=== PATIENT | male | born 1970 | race Caucasian/White ===

== ENCOUNTER 2018-09-13 09:20 | Observation (INO) | payer OTHER ==
[~2018-09-13] VITALS: Ht 175.3 cm; Wt 88.0 kg
[2018-09-13 09:22] VITALS: BP 138/69
[2018-09-13] MEDS ORDERED: HYDROCHLOROTH12.5 M1 PO (09:26)
[2018-09-13] MEDS ORDERED: LOPRESSOR25 PO (09:26)
[2018-09-13 09:36] LABS: HEMATOCRIT 47.7 % (42.0-52.0); HEMOGLOBIN 16.1 gm/dL (14.0-18.0); MCH 29.1 pg (26.0-34.0); MCHC 33.8 g/dL (28.0-37.0); MPV 10.1 fl. (7.2-11.1); NUCLEATED RBCS 0 /100WBC; PLATELET COUNT* 190 thou/uL (150-400); RBC 5.54 mil/uL (4.50-6.00); RDW-CV 13.5 % (10.5-14.5)
[2018-09-13 09:44] LABS: ANION GAP 11 mmol/L (7-16); BUN 25 mg/dL (7-18); CALCIUM 9.3 mg/dL (8.5-10.1); CHLORIDE 103 mmol/L (98-107); CO2 25 mmol/L (21-32); CREATININE 1.4 mg/dL (0.6-1.3); GLUCOSE 118 mg/dL (70-99); POTASSIUM 4.1 mmol/L (3.5-5.1); SODIUM 139 mmol/L (136-145)
[2018-09-13 09:48] LABS: APTT 25.2 Seconds (25.0-31.3); PROTIME 10.4 Seconds (9.20-11.50)
[2018-09-13 09:52] LABS: ALBUMIN 3.9 g/dL (3.4-5.0); ALKALINE PHOSPHATASE 55 U/L (46-116); LIPASE 153 U/L (73-393); SGOT 16 U/L (15-37); SGPT 31 U/L (30-65); TOTAL BILIRUBIN 0.4 mg/dL (<0.1-1.0); TROPONIN-I LEVEL <0.06 ng/mL (<0.06)
[2018-09-13 09:59] LABS: ABSOLUTE EOSINOPHILS 0.3 thou/uL (0.0-0.7); ABSOLUTE LYMPHOCYTES 2.8 thou/uL (0.8-5.3); ABSOLUTE MONOCYTES 0.4 thou/uL (0.0-1.2); ABSOLUTE NEUTROPHILS 4.5 thou/uL (1.6-8.1); ATYPICAL LYMPHS 3 %; PLATELET ESTIMATE ADEQUATE
[2018-09-13 11:45] VITALS: BP 115/71
[2018-09-13 11:58] VITALS: BP 121/61
[2018-09-13 16:01] VITALS: BP 116/73
[2018-09-13 17:55] VITALS: BP 116/73
--- NOTE | 2018-09-14 09:44 | CON ---
[address] [address] CONSULTATION Name: LEMUEL WATKINS Amanda Room: [address] Pauline Schultz#: [id number] Admission: 09/13/18 Attend Phys: Bjorn Oneill MD Discharge: 09/13/18 Date of : 68 Report #: [id number] THIS REPORT FOR: //name// CC: Bjorn LYLES DO Physician staff TYPE OF REPORT: Cardiology consultation. INDICATION: Chest pain. HISTORY OF PRESENT ILLNESS: The patient is a very pleasant gentleman with no prior cardiac history. He presented to the hospital with midsternal chest discomfort and bilateral arm weakness this morning. The pain lasted for approximately 1 hour. The patient was given a nitroglycerin in the Emergency Room with relief of his discomfort. Cardiac risk factors include hypertension and dyslipidemia. He quit smoking 6 years ago. He has not had previous episodes like this. He has had none since. There was mild associated shortness of breath and possibly diaphoresis but no nausea or vomiting. PAST MEDICAL HISTORY: Significant for gastroesophageal reflux, hypertension, dyslipidemia, nephrolithiasis and mild chronic renal insufficiency. PAST SURGICAL HISTORY: Knee surgery x 3, lithotripsy x 2, left inguinal hernia repair as a child. ALLERGIES: STATIN AGENTS. HOME MEDICATIONS: Hydrochlorothiazide 12.5 mg daily, metoprolol tartrate 25 mg daily, omeprazole 20 mg daily and fish oil one tablet daily. FAMILY HISTORY: Noncontributory. SOCIAL HISTORY: Quit smoking 6 years ago. 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 REVIEW OF SYSTEMS: A 14-point review of systems is otherwise unremarkable. PHYSICAL EXAMINATION: VITAL SIGNS: Stable. Blood pressure is 121/61 and pulse is 57 and regular. GENERAL: This is a healthy-appearing young gentleman, in no distress. Mood and affect appropriate. HEENT: Extraocular muscles intact. Mucous membranes are moist. NECK: Shows no jugular venous distention. There are no carotid bruits. CHEST: Reveals clear lung baxter without wheezes, rales or rhonchi. CARDIOVASCULAR: Reveals a regular rhythm. Normal S1 and [place] [address] CONSULTATION Name: LEMUEL WATKINS Room: [address]#: [id number] Admission: 09/13/18 Attend Phys: Bjorn Oneill MD Discharge: 09/13/18 Date of : 68 Report #: [id number] appreciate gallop or murmur. ABDOMEN: Reveals normal bowel sounds. The abdomen is soft and nontender. EXTREMITIES: Shows no edema. Peripheral pulses are 2+ and easily palpable. SKIN: Warm and dry. RADIOLOGICAL DATA: A 12-lead EKG shows sinus rhythm with no significant ST or T-wave abnormalities. LABORATORY DATA: Labs are reviewed. Troponins are less than 0.06 on 2 separate occasions. IMPRESSION AND RECOMMENDATIONS: 1. Chest pain with some features to suggest angina. I would like stress testing to further evaluate. Further notes will be pending results of that study. 2. Hypertension. Continue current antihypertensive regimen with adjustment as needed. 3. Hyperlipidemia. The patient reports statin intolerance. <ELECTRONICALLY SIGNED> By: Trino Casanova MD, FACC 09/14/18 0944 1248 [id number] Hospital[facility]kys Casanova MD, FACC /nt
--- NOTE | 2018-09-14 09:44 | TST ---
[place] [address] TREADMILL STRESS TEST Name: LEMUEL WATKINS Room: [address]#: [id number] Admission: 09/13/18 Attend Phys: Bjorn Oneill, Discharge: 09/13/18 Date of : 68 Date of Service: 09/13/18 1748 Report #: [id number] THIS REPORT FOR: //name// CC: Bjorn Mauro DO Physician staff DATE OF SERVICE: 09/13/2018 STANDARD KIRIT PROTOCOL EXERCISE STRESS TEST: INDICATION: Chest pain. RISK FACTORS: Hyperlipidemia, hypertension, and family history of coronary artery disease. CARDIAC MEDICATIONS: Aspirin, metoprolol and hydrochlorothiazide. The patient exercised per standard Kirit protocol for a total of 10 minutes and 9 seconds. The patient achieved 85% of the maximum predicted heart rate and an energy expenditure equivalent to 12.02 METS. The resting blood pressure was 131/88 mmHg with a resting pulse rate of 63 beats per minute. At peak exercise, the blood pressure was 162/75 mmHg with a peak stress, heart rate 146 beats per minute. In recovery, the blood pressure was 130/90 mmHg with a recovery heart rate of 82 beats per minute. The patient tolerated exercise well and without significant cardiac complaint. The baseline 12-lead EKG shows sinus rhythm with no significant ST or T-wave abnormalities. EKGs obtained during and post-exercise stress shows sinus rhythm and sinus tachycardia with no significant ST or T-wave changes when compared to baseline. There were no stress-induced arrhythmias. IMPRESSION: 1. Clinical response: Nonischemic. 2. Electrocardiographic response: Nonischemic. CONCLUSIONS: This standard Kirit protocol exercise stress test shows no clinical or EKG evidence to suggest stress-induced ischemia. The patient exhibited good exercise tolerance. This is a low-risk study. <ELECTRONICALLY SIGNED> By: Trino Casanova MD, FACC 09/14/18 0944 1748 0003 Trino Casanova MD, FACC /nt
--- NOTE | 2018-09-15 15:31 | EKG ---
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
== END 2018-09-13 18:15 | disposition home or self-care (01) ==
LOC: M.ERS 09:20 → M.TBA-ER 10:54 → M.2W 10:54
PROVIDERS: Personal Emergency Response Attendant; ADMIT Internal Medicine
DX: R07.89 Other chest pain (principal); E78.5 Hyperlipidemia, unspecified; I12.9 Hypertensive chronic kidney disease with stage 1 through stage 4 chronic kidney disease, or unspecified chronic kidney disease; N18.9 Chronic kidney disease, unspecified; M62.81 Muscle weakness (generalized); R05 Cough; Z87.891 Personal history of nicotine dependence; Z98.890 Other specified postprocedural states; Z79.899 Other long term (current) drug therapy; K21.9 Gastro-esophageal reflux disease without esophagitis